=== PATIENT | female | born 1950 ===

== ENCOUNTER 2023-04-20 12:31 | Emergency (ER) | payer MEDICARE, SELFPAY ==
[2023-04-20] VITALS (8 sets, daily range): BP systolic 126–137; BP diastolic 56–64; BMI 28.4
--- NOTE | 2023-04-20 13:50 | ED.GENMED ---
History of Present Illness
<Ariella Laurent PA-C - Last Filed: 04/20/23 19:08>
General
Chief Complaint: Fainting/Passed Out
Source: patient
Exam Limitations: none
Time Seen by Provider: 04/20/23 12:38
Nursing documentation reviewed up to this point in time: agreed with
Travel History
Have you had any contact with someone who has COVID-19?: No
Do you have any symptoms of coronavirus? Fever > 100 degrees, chills, cough, shortness of breath, sore throat, loss of taste or smell, muscle aches, or headache?: No
History of Present Illness
History of Present Illness:
Patient is a 72 year old female with hx HTN, HLD, hypothyroid presenting via ems with her daughters for evaluation following two syncopal episodes this morning. Patient states that she went to the bathroom to have a bowel movement, got up and
started walking when she got very hot and sweaty and fainted. She fell to the ground injuring her right ankle. She did not hit her head or lose consciousness. She is unsure how long exactly she was unconscious but then got up and had the urge to
have another bowel movement. She went to the bathroom, got up and describes a similar fainting episode. Her daughters had just returned home and called 911. They state that she seemed very weak immediately following syncopal episodes. They believe
that she is acting normally right now. She denies any chest pain, shortness of breath, dizziness, or headache preceding her episodes of fainting.
According to report from EMS - she was hypotensive to 60s/30s in route but her BP has been stable since arrival to emergency department.
She has no current complaints. No chest pain, shortness of breath, fever, chills, headache, or weakness. She denies any recent illnesses, recent travel, or recent surgery
Past History
<Ariella Laurent PA-C - Last Filed: 04/20/23 19:08>
Past History
ED Past Medical History: COPD, HTN, Psychiatric (Depression) and Other (Arthritis)
Social History
Tobacco: Former smoker
Alcohol: None
Personal: Single
<Eduardo Oro MD - Last Filed: 04/20/23 19:42>
Review of Systems
All Other Systems: Not applicable
Constitutional: Denies fever
Respiratory: Denies hemoptysis or trouble breathing
Cardiac: Denies chest pain or palpitations
Phy Exam
<Ariella Laurent PA-C - Last Filed: 04/20/23 19:08>
Physical Exam
Physical Exam:
General: Well appearing and non-toxic
Vitals: VSS, afebrile
HEENT: Atraumatic, normocephalic; pupils equal round and reactive to light bilaterally, extraocular muscles intact, protecting airway
Neck: appears supple
CV: No evidence of cyanosis
Resp: No accessory muscle use
Abd: Non-distended
Extremities: No deformities
Neuro: alert
Psych: Normal affect
Skin: Intact
<Eduardo Oro MD - Last Filed: 04/20/23 19:42>
Physical Exam
Physical Exam:
GENERAL: Alert and oriented in no apparent distress
EYE: Orbits normal.
NECK: Supple. No thyroid palpable
CARDIAC: Regular rate and rhythm without any obvious murmurs.
LUNGS: Clear breath sounds,normal
ABDOMEN: Soft, without focal tenderness or distention
NEUROLOGICAL: Alert and oriented , grossly non-focal
SKIN: Warm and dry
MUSCULOSKELETAL: Swelling to the right lateral malleolus with tenderness. No medial tenderness or swelling. Achilles intact. Negative fifth metatarsal. No foot tenderness.
PSYCH: Normal and appropriate interaction.
Impression: Patient is describing vasovagal syncope associated with defecation. Recurring episodes likely related to not having completed the process. Patient feels fine now. No preceding or post chest pain shortness of breath or other
complaints. Highly doubt pulmonary emboli. Not describing anginal symptoms. Labs fluids observation.
Course
<Ariella Laurent PA-C - Last Filed: 04/20/23 19:08>
Orders/Labs/Results
Orders:
Orders
04/20/23 12:36
EKG [Electrocardiogram (*1)] Urgent
Reason for Study: Syncope
EKG- Treatment ONCE
04/20/23 13:30
0.9% Sodium Chloride 1000 ml [Nss] 1,000 ml IV BOLUS
Acetaminophen [Tylenol] 650 mg PO NOW STA
Ankle, Right 3 view CR [CR Ankle - Right Min 3 Views *] Urgent
Comment:
Reason For Exam: fall, pain and swelling at lateral malleolus
04/20/23 13:53
Add On- LAB Urgent
Tests Added?: TSH w/ reflex T4
04/20/23 13:57
Basic Metabolic Panel Urgent
TSH Reflex To Free T4 Urgent
Comment: ADD ON
04/20/23 15:47
Crutches-Treatment ONCE
Ortho Boot Right- Treatment ONCE
Short or tall?: Tall
04/20/23 16:20
Complete Blood Count/With Diff Urgent
Abnormal Lab Results
04/20/23 04/20/23
13:57 16:20
WBC 12.4 H 10^3/uL
(4.8-10.8)
RBC 4.15 L 10^6/uL
(4.20-5.40)
Hct 35.3 L %
(37.0-47.0)
MPV 11.7 H fL
(7.4-10.4)
Absolute Neuts (auto) 9.2 H 10^3/uL
(1.4-6.5)
Lymphocytes % 19.6 L %
(20.5-51.1)
Chloride 108 H mmol/L
(98-107)
BUN 29 H mg/dl
(7-17)
04/20/23 16:20
04/20/23 13:57
Vital Signs
Initial and Last Documented VS:
Initial Vital Signs
Temp Pulse Resp BP Pulse Ox
98.1 F 56 14 131/63 96
04/20/23 12:37 04/20/23 12:37 04/20/23 12:37 04/20/23 12:37 04/20/23 12:37
Last Documented Vital Signs
Temp Pulse Resp BP Pulse Ox
98.1 F 62 18 133/64 95
04/20/23 12:37 04/20/23 17:00 04/20/23 17:00 04/20/23 17:06 04/20/23 17:06
<Eduardo Oro MD - Last Filed: 04/20/23 19:42>
Orders/Labs/Results
Orders:
Orders
04/20/23 12:36
EKG [Electrocardiogram (*1)] Urgent
Reason for Study: Syncope
EKG- Treatment ONCE
04/20/23 13:30
0.9% Sodium Chloride 1000 ml [Nss] 1,000 ml IV BOLUS
Acetaminophen [Tylenol] 650 mg PO NOW STA
Ankle, Right 3 view CR [CR Ankle - Right Min 3 Views *] Urgent
Comment:
Reason For Exam: fall, pain and swelling at lateral malleolus
04/20/23 13:53
Add On- LAB Urgent
Tests Added?: TSH w/ reflex T4
04/20/23 13:57
Basic Metabolic Panel Urgent
TSH Reflex To Free T4 Urgent
Comment: ADD ON
04/20/23 15:47
Crutches-Treatment ONCE
Ortho Boot Right- Treatment ONCE
Short or tall?: Tall
04/20/23 16:20
Complete Blood Count/With Diff Urgent
Abnormal Lab Results
04/20/23 04/20/23
13:57 16:20
WBC 12.4 H 10^3/uL
(4.8-10.8)
RBC 4.15 L 10^6/uL
(4.20-5.40)
Hct 35.3 L %
(37.0-47.0)
MPV 11.7 H fL
(7.4-10.4)
Absolute Neuts (auto) 9.2 H 10^3/uL
(1.4-6.5)
Lymphocytes % 19.6 L %
(20.5-51.1)
Chloride 108 H mmol/L
(98-107)
BUN 29 H mg/dl
(7-17)
04/20/23 16:20
04/20/23 13:57
Vital Signs
Initial and Last Documented VS:
Initial Vital Signs
Temp Pulse Resp BP Pulse Ox
98.1 F 56 14 131/63 96
04/20/23 12:37 04/20/23 12:37 04/20/23 12:37 04/20/23 12:37 04/20/23 12:37
Last Documented Vital Signs
Temp Pulse Resp BP Pulse Ox
98.1 F 62 18 133/64 95
04/20/23 12:37 04/20/23 17:00 04/20/23 17:00 04/20/23 17:06 04/20/23 17:06
<Ariella Laurent PA-C - Last Filed: 04/20/23 19:08>
MDM/Problems Addressed
Differential Diagnosis Includes:
vasovagal syncope, cardiac arrhythmia, anemia, dehydration, ankle sprain, ankle fracture, doubt PE
MDM/Problems Addressed:
Patient is a 72 y.o female with history hypothyroid, HLD, HTN presenting for evaluation following two syncopal episodes earlier today. She describes two syncopal episodes after bowel movements within five minutes of each other. She injured her right
ankle in fall. She denies any chest pain, shortness of breath, headache, vision changes. Patient has been feeling better since arrival to emergency department. She is hemodynamically stable on arrival, bradycardic in upper 50s which appears to be
around patients baseline. She is on a beta josh at home. Physical exam as documented above. She has dry mucous membranes. She has some swelling and tenderness around right lateral malleolus. Symptoms most consistent with vasovagal syncope
following bowel movement, possible dehydration. Will check basic labs, EKG, TSH. Will start IVF. Will get xray of right ankle, tylenol for pain.
EKG shows sinus bradycardia without signs of ischemia.
CBC shows mild leukocytosis to 12.4 likely stress reaction. No anemia. Otherwise no clinically significant abnormalities. BMP shows renal insufficiency, likely due to dehydration.
Patient's IV line infiltrated. She is able to tolerate fluids by mouth. Will have her drink a few cups of water while in emergency department.
X-ray of right ankle shows nondisplaced fracture of right distal fibula. Discussed with orthopedics. Will place in cast boot, give crutches, nonweightbearing until Ortho follow-up.
Patient has remained stable in emergency department. She is feeling much better. Stable for discharge with return precautions, orthopedic follow-up. Lengthy discussion with patient and patient's daughter regarding importance of staying
nonweightbearing until orthopedic follow-up. Patient and patient's daughter comfortable this plan. All questions answered.
Chronic conditions affecting care:
HTN, HLD, hypothyroid
Acute Exacerbation and/or Progression of Chronic Illness:
Vasovagal syncope, right distal fibula fracture
<Ariella Laurent PA-C - Last Filed: 04/20/23 19:08>
*Radiology
Radiology exam reviewed: preliminary read by ED provider and radiology read reviewed
*Pulse Oximetry
Patient hypoxic: no
*EKG
Interpreted by ED Provider?: Yes
EKG Intrepretation Date: 04/20/23
Interpretation: abnormal
Comparison EKG: no comparison EKG present
Heart Rate: 54
Rate: bradycardiac
Rhythm: sinus
[place]ner: normal axis
Interval: normal interval
QRS Pattern: normal QRS
Ischemia: no ischemia
*Platen Press Operator Apprentice Interpretation
Rate: bradycardiac
Interpretation: normal
Heart Rate: 58
Rhythm: sinus
*Critical Care Note
Total Time (30-74mins, 75-104mins- exclusive of procedures): Not Applicable
ED Attending Note
<Ariella Laurent PA-C - Last Filed: 04/20/23 19:08>
-
Portions of this chart may have been created with voice recognition software.� Occasional wrong word or��sound alike� substitutions may have occurred due to the inherent limitations of voice recognition software.
<Eduardo Oro MD - Last Filed: 04/20/23 19:42>
ED Attending Note
Patient seen and examined by attending physician: Yes
I performed the substantive portion of visit, reviewed & personally made and approve the management plan that is documented in note by myself or MILIND.: Yes
ED Attending Note:
72-year-old healthy female became lightheaded diaphoretic while having a bowel movement. She stood up became more lightheaded diaphoretic and passed out. She hurt her right ankle at that time. She had 2 recurring episodes in a matter of 10
minutes. No chest pain shortness of breath or other complaints. Currently asymptomatic., Except for her right ankle pain no history of syncope. No cardiac issues.
Patient rechecked prior to discharge and updated. Medically stable. No further hypotensive or arrhythmia issues. All consistent with vasovagal syncope. Ankle fracture was discussed with orthopedics. Nonweightbearing cast boot and close
follow-up.
Discharge Plan
Departure
Patient Disposition: Home (Routine Discharge)
Date of Disposition: 04/20/23
Time of Disposition: 17:01
Patient with high blood pressure during this ER visit?: Yes
Condition: Good
Covid-19: Not Applicable
Discharge Problem:
Syncope, vasovagal, Fracture of distal end of right fibula, Acute dehydration
Instructions: Dehydration, Adult (DC), Syncope (Fainting) (DC), Fibula Fracture (DC), BLOOD PRESSURE
Prescriptions:
No Action
famotidine 20 MG tablet
20 mg PO BID Qty: 28 0RF
Rx Instructions:
Take 20 mg twice a day for 14 days
ascorbic acid (vitamin C) [Vitamin C] 500 MG tablet
1,000 mg PO BID Qty: 56 0RF
Rx Instructions:
Take 1,000 mg twice a day for 14 days
aspirin 81 MG tablet,chewable
81 mg PO DAILY Qty: 14 0RF
Rx Instructions:
Take 81 mg daily for 14 days
zinc sulfate 220 MG capsule
220 mg PO DAILY Qty: 14 0RF
Rx Instructions:
Take 220 mg daily for 14 days
cholecalciferol (vitamin D3) 1,000 UNITS tablet
2,000 units PO DAILY Qty: 28 0RF
Rx Instructions:
Take 2,000 units daily for 14 days
melatonin 5 MG tablet
5 mg PO HS Qty: 14 0RF
Rx Instructions:
Take 5 mg daily at bedtime for 14 days
Referrals:
Pascual Flores MD [Active] - Call in 1-3 days for appt
Callie Jacinto DO [Family Provider] -
Activity Restrictions/Additional Instructions:
-Return to emergency room with any chest pain, shortness of breath, recurrent fainting, dizziness, signs of severe dehydration, numbness/tingling in right lower leg, intractable pain, worsening in current symptoms or any other concerns
-As discussed - you have a fracture of your right ankle. You need to follow-up with orthopedics in a few days for further evaluation/management. It is important to keep the boot on and stay NON-weight bearing until you follow-up with orthopedics.
You can take Tylenol as needed for pain.
-It is important to stay very well hydrated.
-Follow-up with primary care for further evaluation/management
Interventions
Interventions:
*Risk Screen - Suicide Last Done: 04/20/23 12:37
*General Assessment Last Done: 04/20/23 12:49
*Neglect/Abuse Screening Last Done: 04/20/23 12:37
ED- Fall Risk Assessment Last Done: 04/20/23 17:17
*ED COVID-19 Vaccine History Last Done: 04/20/23 12:37
*Nursing Disposition Last Done: 04/20/23 17:17
ED- Cardiac Assessment Last Done: 04/20/23 12:47
ED- Neurological Assessment Last Done: 04/20/23 12:47
Discharge Date and Time
Discharge Date/Time: 04/20/23 17:19
[2023-04-20] MEDS: NSS 1000 IV (14:23)
[2023-04-20 14:30] LABS: Blood Urea Nitrogen 29 mg/dl (7-17); Calcium 8.9 mg/dl (8.4-10.2); Carbon Dioxide 22 mmol/L (22-30); Chloride 108 mmol/L (98-107); Estimated Creatinine Clearance 65 ml/min; Glucose 97 mg/dl (70-99); Sodium 135 mmol/L (135-145); eGFR > 60.00
[2023-04-20] MEDS: TYLENOL 650 MG PO (14:36)
[2023-04-20 15:36] LABS: TSH Reflex To Free T4 2.16 uIU/ml (0.47-4.68)
[2023-04-20 16:34] LABS: % Basophils 0.2 % (0-2); % Eosinophils 0.2 % (0-6); % Immature Granulocytes 0.3 % (0-0.5); % Lymphocytes 19.6 % (20.5-51.1); % Monocytes 5.1 % (1.7-9.3); % Neutrophils 74.6 % (42.2-75.2); Absolute Lymphocytes 2.4 10^3/uL (1.2-3.4); Absolute Monocytes 0.6 10^3/uL (0.1-0.6); Absolute Neutrophils 9.2 10^3/uL (1.4-6.5); Hematocrit 35.3 % (37.0-47.0); Hemoglobin 12.2 g/dL (12.0-16.0); Mean Corp Hgb Conc. 34.6 g/dL (33.0-37.0); Mean Corpuscular Hgb 29.4 pg (27.0-31.0); Mean Corpuscular Volume 85.1 fL (81.0-99.0); Mean Platelet Volume 11.7 fL (7.4-10.4); Nucleated Red Blood Cells % 0 %; Platelet Count 150 10^3/uL (130-400); Red Blood Cell Count 4.15 10^6/uL (4.20-5.40); Red Cell Dist. Width 13.7 % (11.5-14.5); White Blood Cell Count 12.4 10^3/uL (4.8-10.8)
== END 2023-04-20 17:19 | disposition home or self-care (01) ==
LOC: EMR 12:31
PROVIDERS: Physician Assistant; EMERGENCY PHYSICIAN Emergency Medicine; FAMILY PHYSICIAN Family Medicine
DX: E86.0 Dehydration (principal); R55 Syncope and collapse; S82.831A Other fracture of upper and lower end of right fibula, initial encounter for closed fracture; W19.XXXA Unspecified fall, initial encounter; I10 Essential (primary) hypertension; E78.5 Hyperlipidemia, unspecified; E03.9 Hypothyroidism, unspecified; Z87.891 Personal history of nicotine dependence
CPT/HCPCS: 99285; 96360; 73610; 80048; 84443; 85025; 93005